=== PATIENT | female | born 1985 | race American Indian/Alaskan Native ===

== ENCOUNTER 2017-04-10 09:37 | Emergency (ER) | payer MEDICAID ==
[2017-04-10 10:00] VITALS: BP 132/87
[2017-04-10] MEDS ORDERED: NORCO 5/325 PO ONE (11:35)
[2017-04-10] MEDS ORDERED: DILAUDID IM ONE (11:47)
[2017-04-10] MEDS ORDERED: ZOFRAN ODT PO ONE (11:48)
[2017-04-10] MEDS ORDERED: XYLOCAINE TOPICAL 2% TP ONE (12:30)
--- NOTE | 2017-04-10 12:39 | Emergency Department Report ---
ED General Adult HPI - General Chief complaint: Pain General Stated complaint: HEMMORRIDS Source: patient Mode of arrival: Ambulatory Limitations: No Limitations - History of Present Illness Initial comments: 31 y/o F with no significant PMHX presents with rectal hemorrhoids after giving to her baby 5 days ago- vaginal with no complications. Pt states that the same thing happened when she delivered her first baby in 2012. Pt states that she has 10/10 in severity pain and has been trying preparation H and witch noel with no help. She states that her last BM was Friday and she states that she is afraid to go because of the pain. She denies any abdominal pain, fever, chills, CP, SOB, or n/v. She has been eating and urinating without issues. Pt states that she is not beast feeding and has someone to transport her home and help her with the baby. Currently on no other prescribed medications. NKDA. -: days(s) (5 days ago after of baby) Location: buttocks Severity scale (0 -10): 10 Quality: stabbing Consistency: constant Improves with: none Worsens with: other (touch) Treatments Prior to Arrival: other (preparation H and witch noel) - Related Data Home Medications Medication Instructions Recorded Confirmed Last Taken Valacyclovir HCl [valACYclovir] 1 tab PO DAILY 04/04/17 04/04/17 03/28/17 09:00 1 Previous Rx's Medication Instructions Recorded Last Taken Type Docusate Sodium [Colace] 100 mg PO BID PRN #10 capsule 04/10/17 Unknown Rx Hydrocortisone [Anusol-Hc] 30 gm RC BID #1 cream..g. 04/10/17 Unknown Rx oxyCODONE /ACETAMINOPHEN [Percocet 1 tab PO Q6HR PRN #10 tablet 04/10/17 Unknown Rx 5/325] Allergies Allergy/AdvReac Type Severity Reaction Status Date / Time No Known Allergies Allergy Verified 04/04/17 15:36 ED Review of Systems ROS: Stated complaint: HEMMORRIDS Other details as noted in HPI Constitutional: denies: chills, fever Eyes: denies: eye pain, eye discharge, vision change ENT: denies: ear pain, throat pain Respiratory: denies: cough, shortness of breath, wheezing Cardiovascular: denies: chest pain, palpitations Genitourinary: denies: urgency, dysuria, discharge Skin: other (hemorrhoids- 4 rectal) Neurological: denies: headache, weakness, paresthesias Psychiatric: denies: anxiety, depression Hematological/Lymphatic: denies: easy bleeding, easy bruising ED Past Medical Hx - Past Medical History Previous Medical History?: Yes Hx Hypertension: No Hx Congestive Heart Failure: No Hx Diabetes: No Hx Deep Vein Thrombosis: No Hx Renal Disease: No Hx Sickle Cell Disease: No Hx Seizures: No Hx Asthma: No Hx COPD: No Hx HIV: No Additional medical history: Vaginal delivery - Surgical History Past Surgical History?: No - Social History Smoking Status: Former Smoker Substance Use Type: Alcohol, Non Opiate Pain - Medications Home Medications: Home Medications Medication Instructions Recorded Confirmed Last Taken Type Valacyclovir HCl [valACYclovir] 1 tab PO DAILY 04/04/17 04/04/17 03/28/17 09:00 History 1 Docusate Sodium [Colace] 100 mg PO BID PRN #10 capsule 04/10/17 Unknown Rx Hydrocortisone [Anusol-Hc] 30 gm RC BID #1 cream..g. 04/10/17 Unknown Rx oxyCODONE /ACETAMINOPHEN [Percocet 1 tab PO Q6HR PRN #10 tablet 04/10/17 Unknown Rx 5/325] ED Physical Exam - General Limitations: No Limitations General appearance: alert, in no apparent distress - Head Head exam: Present: atraumatic, normocephalic - Eye Eye exam: Present: normal appearance - Respiratory Respiratory exam: Present: normal lung sounds bilaterally. Absent: respiratory distress - Cardiovascular Cardiovascular Exam: Present: regular rate, normal rhythm. Absent: systolic murmur, diastolic murmur, rubs, gallop - GI/Abdominal GI/Abdominal exam: Present: soft, normal bowel sounds - Rectal Rectal exam: Present: normal rectal tone, hemorrhoids, tenderness, other (there is blood noted (secondary to the recent vaginal ) with 4 external hemorroids noted without evidence of thrombosis and appeared reducible in nature ) - Neurological Exam Neurological exam: Present: alert, oriented X3 - Psychiatric Psychiatric exam: Present: normal affect, normal mood ED Course Vital Signs 04/10/17 09:56 Temperature 97.9 F Pulse Rate 70 Respiratory 16 Rate Blood Pressure 132/87 O2 Sat by Pulse 98 Oximetry ED Medical Decision Making - Medical Decision Making Case was discussed with Dr. Dominguez who also examined the patient. Pt was in significant pain on exam. pt was gien 0.5 mg of Dilaudid and Zofran 4 mg for the pain. Lidiociane RC was applied in the ED to the area. Patient states that this helped significantly with the pain. She was discharged with a laxative, anusol, and pain mediations. Pt was given referrals to [facility] , PCP, and obgyn. She was discharged in stable condition, alert and oriented, and in no resp distress. Critical care attestation.: If time is entered above; I have spent that time in minutes in the direct care of this critically ill patient, excluding procedure time. ED Disposition Clinical Impression: Acute hemorrhoid Disposition: DC-01 TO HOME OR SELFCARE Is pt being admited?: No Does the pt Need Aspirin: No Condition: Stable Instructions: Laxative, Stool Softeners (By mouth), Hydrocortisone (Rectal), Hemorrhoids (ED) Additional Instructions: Please follow up with your OBGYN within 2 days. I have given you a referral to [facility] please see them within this week. Please do sitz baths at home to help with your symptoms. Please be advised that the pain medication can make you drowsy do not take when driving or operating heavy machinery. Please return to the ER immediately if your presenting symptoms increase or worsen. Prescriptions: Docusate Sodium [Colace] 100 mg PO BID PRN #10 capsule PRN Reason: constipation Hydrocortisone [Anusol-Hc] 30 gm RC BID #1 cream..g. oxyCODONE /ACETAMINOPHEN [Percocet 5/325] 1 tab PO Q6HR PRN #10 tablet PRN Reason: Pain Referrals: [facility] [Outside] - 3-5 Days [facility] [Outside] - 3-5 Days EFRAIN WALLS MD [Staff Physician] - 3-5 Days CARIDAD ZHU MD [Staff Physician] - 3-5 Days PRIMARY MD GIOVANNA [Primary Care Provider] - 3-5 Days BARNEY KELLER MD [Staff Physician] - 3-5 Days Forms: Work/School Release Form(ED)
== END 2017-04-10 12:58 | disposition home or self-care (01) ==
LOC: ED 09:37
DX: K64.9 Unspecified hemorrhoids (principal)
CPT/HCPCS: 96372; 99283; J1170; Q0162

== ENCOUNTER 2017-04-19 20:20 | Emergency (ER) | payer MEDICAID ==
[2017-04-19 20:55] VITALS: BP 148/70
== END 2017-04-20 05:20 | disposition left against medical advice (07) ==
LOC: ED 20:20
DX: K64.9 Unspecified hemorrhoids (principal); Z53.21 Procedure and treatment not carried out due to patient leaving prior to being seen by health care provider

== ENCOUNTER 2020-09-22 10:07 | Emergency (ER) | payer MEDICAID | END 2020-09-22 13:09 | disposition left against medical advice (07) | LOC: ED 10:07 | DX: O26.891 Other specified pregnancy related conditions, first trimester (principal); R10.2 Pelvic and perineal pain; Z3A.10 10 weeks gestation of pregnancy ==

== ENCOUNTER 2021-03-21 19:47 | Outpatient (CLI) | payer MEDICAID ==
[2021-03-21] MEDS ORDERED: BETAMET ACET/BETAMET NA PH 6 MG/ML INJ 5 ML MDV IM ONE (22:49)
[2021-03-22 00:08] VITALS: BP 136/72
== END 2021-03-22 00:15 | disposition home or self-care (01) ==
LOC: TRG 19:47 → LD 19:49 → TRG 03-22 00:15
PROVIDERS: ATTEND Obstetrics & Gynecology
DX: Z34.93 Encounter for supervision of normal pregnancy, unspecified, third trimester (principal); Z3A.36 36 weeks gestation of pregnancy
CPT/HCPCS: J0702

== ENCOUNTER 2021-03-22 22:40 | Outpatient (CLI) | payer MEDICAID ==
[2021-03-22] MEDS ORDERED: BETAMET ACET/BETAMET NA PH 6 MG/ML INJ 5 ML MDV IM ONE (23:16)
[2021-03-22 23:23] VITALS: BP 108/61
== END 2021-03-22 23:27 | disposition home or self-care (01) ==
LOC: TRG 22:40 → APU 22:41 → TRG 23:27
PROVIDERS: ATTEND Obstetrics & Gynecology
DX: O09.893 Supervision of other high risk pregnancies, third trimester (principal); Z3A.36 36 weeks gestation of pregnancy
CPT/HCPCS: 59025; 96372; J0702

== ENCOUNTER 2021-04-13 08:40 | Inpatient (IN) | payer MEDICAID ==
[2021-04-13 12:03] LABS: Basophils % (Auto) 0.1 % (0.0-1.8); Eosinophils # (Auto) 0.1 K/mm3 (0.0-0.4); Hematocrit 34.6 % (30.3-42.9); Hemoglobin 11.1 gm/dl (10.1-14.3); Lymphocytes # (Auto) 1.1 K/mm3 (1.2-5.4); Lymphocytes % (Auto) 20.8 % (13.4-35.0); Mean Corpuscular HGB Conc 32 % (30-34); Mean Corpuscular Volume 78 fl (79-97); Monocytes # (Auto) 0.2 K/mm3 (0.0-0.8); Monocytes % (Auto) 4.4 % (0.0-7.3); Platelet Count 163 K/mm3 (140-440); Red Blood Count 4.42 M/mm3 (3.65-5.03); Red Cell Distribution Width 18.3 % (13.2-15.2)
--- NOTE | 2021-04-13 13:04 | History and Physical Report ---
History of Present Illness Date of examination: 04/13/21 Date of admission: 04/13/21 08:40 Chief complaint: scheduled induction for morbid obesity, grand multiparous in latent labor History of present illness: [id number] at 39.6wks by LMP c/w U/S here for augmentation of labor for morbid obesity; care at [facility]. Pt admits to movement, denies LOF or VB and admits to feeling ctx. Pt denies headache. Pt desires permanent sterilization. labs with O positive, antibody screen negative, rubella immune, RPR, HIV and HepBsAg all neg. 1hrgtt wnl; GBS negative. 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; Thrombocytopenia at 143,000) Past Surgical History: no surgical history Social history: no significant social history - Obstetrical History Expected Date of Delivery: 04/14/21 Actual Gestation: 39 Week(s) 6 Day(s) : 7 Para: 6 Hx # Term Pregnancies: 5 Number of Pregnancies: 1 Number of Living Children: 6 Medications and Allergies Allergies Allergy/AdvReac Type Severity Reaction Status Date / Time No Known Allergies Allergy Verified 04/04/17 15:36 Home Medications Medication Instructions Recorded Confirmed Last Taken Type Valacyclovir HCl [valACYclovir] 1 tab PO DAILY 04/04/17 04/13/21 04/12/21 History Cholecalciferol (Vitamin D3) 50 mcg PO DAILY 04/13/21 04/13/21 04/12/21 History [Vitamin D3] Ferrous Sulfate [Ferrous Sulfate 324 mg PO DAILY 04/13/21 04/13/21 04/12/21 History 324 MG] Vit-Fe Fumar-FA [ 1 tab PO DAILY 04/13/21 04/13/21 04/12/21 History Vitamin] Review of Systems All systems: negative (none) - Vital Signs Vital signs: Vital Signs Pulse Pulse Ox 59 L 94 04/13/21 09:43 04/13/21 09:43 Temp Pulse Resp BP Pulse Ox 98.8 F 94 H 16 119/78 99 04/13/21 10:07 04/13/21 10:16 04/13/21 10:07 04/13/21 09:48 04/13/21 10:16 - Physical Exam Breasts: Positive: deferred Cardiovascular: Regular rate Lungs: Positive: Normal air movement Abdomen: Positive: soft Genitourinary (Female): Positive: normal external genitalia Vulva: both: normal (no herpetic lesions) Vagina: Positive: normal moisture Uterus: Positive: enlarged (non-tender, ravid) - Obstetrical FHR: category 1 Uterine Contraction Monitor Mode: External Cervical Dilatation: 3 (per admit nurse) Cervical Effacement Percentage: 50 station: -2 Uterine Contraction Pattern: Irregular Results Result Diagrams: 04/13/21 10:00 Abnormal lab results 04/13/21 Range/Units 10:00 MCV 78 L (79-97) fl MCH 25 L (28-32) pg RDW 18.3 H (13.2-15.2) % Lymph # (Auto) 1.1 L (1.2-5.4) K/mm3 Seg Neutrophils % 73.7 H (40.0-70.0) % All other labs normal. Assessment and Plan Grand multiparous in latent labor, morbid obesity, GBS negative 1. Admit to labor and delivery 2. Augment with pitocin 3. May have IV pain med or epidural when desired 4. Plan of care discussed and consents obtained. Expect
[2021-04-13] MEDS ORDERED: METHYLERGONOVINE MALEATE 0.2 MG/ML VIAL IM PRN (13:28)
[2021-04-13] MEDS ORDERED: OXYTOCIN 10 UNIT/1 ML INJ IM PRN (13:28)
[2021-04-13] MEDS ORDERED: LIDOCAINE (2%) 20 MG/1 ML VIAL 20 ML MDV INFILTRATI NR (13:28)
[2021-04-13] MEDS ORDERED: LOPERAMIDE 2 MG CAP PO PRN (13:28)
[2021-04-13] MEDS ORDERED: CARBOPROST TROMETHAMINE 250 MCG/1 ML INJ IM PRN (13:28)
[2021-04-13] MEDS ORDERED: miSOPROStol 200 MCG TAB PR PRN (13:28)
[2021-04-13] MEDS ORDERED: TERBUTALINE 1 MG/1 ML INJ SUB-Q PRN (13:28)
[2021-04-13] MEDS ORDERED: ONDANSETRON 4 MG/2 ML INJ IV PRN (14:00)
[2021-04-13] MEDS ORDERED: NalbUPHINE 10 MG/1 ML INJ IV PRN (14:00)
[2021-04-13] MEDS ORDERED: fentaNYL 100 MCG/2 ML INJ IV PRN (14:00)
[2021-04-13] MEDS ORDERED: ACETAMINOPHEN 325 MG TAB PO PRN (14:00)
[2021-04-13] MEDS ORDERED: PROMETHAZINE 25 MG TAB PO PRN (14:00)
[2021-04-13] MEDS ORDERED: ePHEDrine SULFATE 50 MG/1 ML INJ IV PRN (14:00)
[2021-04-13] MEDS ORDERED: OXYTOCIN DRIP 30 UNITS/500 ML BAG IV SCH ×2 (14:00)
[2021-04-13] MEDS: LACTATED RINGERS 1,000 ML IV SCH (14:13)
[2021-04-13] MEDS ORDERED: MINERAL OIL 30 ML ORAL LIQD PO PRN (22:00)
--- NOTE | 2021-04-13 23:50 | Event Note ---
Date: 04/13/21 pt evaluated and FHR not tracing well with multiple loss of contact. Plan of care of discussed for AROM, IUPC and FSE and agreed. Pelvic 5/50/-2 and with fundal pressure during a ctx, AROM done with meconium stained fluid, IUPC placed without difficulty and FSE also placed. Pt desires epidural and nurse notified to start bolus. Anticipate vaginal delivery.
[2021-04-14] MEDS: LACTATED RINGERS 1,000 ML IV SCH ×2 (00:17→03:19)
[2021-04-14] MEDS ORDERED: NALOXONE 2 MG/2 ML INJ IV PRN (00:32)
[2021-04-14] MEDS ORDERED: NalbUPHINE 10 MG/1 ML INJ IV PRN (00:32)
[2021-04-14] MEDS ORDERED: diphenhydrAMINE 50 MG/ML VIAL IV PRN (00:32)
[2021-04-14] MEDS ORDERED: LACTATED RINGERS 250 ML IV SOLN IV ONE (00:32)
[2021-04-14] MEDS ORDERED: ePHEDrine SULFATE 50 MG/1 ML INJ IV PRN (00:32)
[2021-04-14] MEDS ORDERED: ONDANSETRON 4 MG/2 ML INJ IV PRN ×2 (00:32→04:33)
[2021-04-14] MEDS ORDERED: fentaNYL-BUPIV 2 MCG/ML-0.125% 200 MCG/100 ML BAG EPIDURAL SCH (01:00)
--- NOTE | 2021-04-14 01:11 | Anesthesia Consultation ---
Anesthesia Consult and Med Hx Date of service: 04/14/21 - Airway Anesthetic Teeth Evaluation: Good ROM Head & Neck: Adequate Mental/Hyoid Distance: Adequate Mallampati Class: Class II Intubation Access Assessment: Probably Good - Pulmonary Exam CTA: Yes - Cardiac Exam Cardiac Exam: RRR - Pre-Operative Health Status ASA Pre-Surgery Classification: ASA2 Proposed Anesthetic Plan: Epidural - Pulmonary Hx Smoking: No Hx Asthma: No COPD: No Hx Pneumonia: No Hx Sleep Apnea: No - Cardiovascular System Hx Hypertension: No Hx Heart Attack/AMI: No Hx Angina: No - Central Nervous System Hx Seizures: No Hx Psychiatric Problems: Yes (Anxiety) - Gastrointestinal Hx Gastroesophageal Reflux Disease: No - Endocrine Hx Renal Disease: No Hx End Stage Renal Disease: No Hx Liver Disease: No Hx Insulin Dependent Diabetes: No Hx Non-Insulin Dependent Diabetes: No Hx Hypothyroidism: No Hx Hyperthyroidism: No - Hematic Hx Anemia: Yes Hx Sickle Cell Disease: No - Other Systems Hx Alcohol Use: No
--- NOTE | 2021-04-14 01:12 | Progress Note ---
Labor Epidural - Labor Epidural Start Time: 00:44 Stop Time: 01:05 Performed by:: CARLA FITZPATRICK Procedure: Patient is requesting epidural for labor and pain. H&P, labs were reviewed. Patient IDed, H&P reviewed, all questions and concerns were answered, and consent was signed. Timeout was performed at bedside. Patient in sitting position. Sterile prep and drape was performed. 3ml of 1% lidocaine skin wheal at L[3]- L [4]. 17-gauge Tuohy epidural needle was advanced without success. 3ml of 1% lidocaine skin wheal at L[2]- L [3]. 17-gauge Tuohy epidural needle was advanced to loss of resistance with air technique 7cm. Negative CSF negative blood. Epidural catheter advanced to [12] centimeters. [negative] Aspiration [negative] test dose. Sterile dressing applied. Patient tolerated procedure.
--- NOTE | 2021-04-14 02:28 | Procedure Note ---
OB Delivery Note - Delivery Date of Delivery: 04/14/21 Surgeon: ALFREDO HALL Estimated blood loss: 100cc - Vaginal Delivery presentation: vertex Delivery position: OA Intrapartum events: other(please specify) (meconium stained fluid with particulate matter) Delivery induction: none Delivery augmentation: rupture of membranes, pitocin Delivery monitor: external FHT, external uterine, internal FHT, internal uterine Route of delivery: Delivery placenta: spontaneous Delivery cord: 3 umbilical vessels Episiotomy: none Delivery laceration: none Anesthesia: epidural Delivery comments: SAVD of viable female uncomplicated. Placenta delivered complete and no lacerations. Bimanual done and fundus firm with pitocin. Cytoctec given due grand multiparous. Pt already having loose stool with delivery and small hemorrhoids. Mom and baby stable. - Infant A at 1 minute: 8 at 5 minutes: 9 Gender: Female (wt 2550g; meconium stained fluid with particulate matter)
[2021-04-14] MEDS ORDERED: HYDROCORTISONE 2.5% RECT CREAM 28.35 GM PR PRN (02:32)
[2021-04-14] MEDS ORDERED: LANOLIN/ZINC/DIMETHICONE (LANSINOH) 7 GM TP PRN (04:33)
[2021-04-14] MEDS ORDERED: diphenhydrAMINE 25 MG CAP PO PRN (04:33)
[2021-04-14] MEDS ORDERED: MAGNESIUM HYDROXIDE (MOM) ORAL LIQD UDC PO PRN (04:33)
[2021-04-14] MEDS ORDERED: BENZOCAINE/MENTHOL 20/0.5% TOP SPRAY 56 GM TP PRN (04:33)
[2021-04-14] MEDS ORDERED: PROMETHAZINE 25 MG TAB PO PRN (04:33)
[2021-04-14] MEDS ORDERED: PROMETHAZINE 25 MG RECT SUPP PR PRN (04:33)
[2021-04-14] MEDS ORDERED: WITCH HAZEL/ GLYCERIN PAD TP PRN (04:33)
[2021-04-14] MEDS: IBUPROFEN 600 MG TAB PO SCH ×3 (04:45→15:45)
[2021-04-14] MEDS: oxyCODONE /ACETAMINOPHEN 5-325MG TAB PO PRN ×3 (05:42→18:21)
[2021-04-14] MEDS: PRENATAL VIT27-FE FUMARATE-FOLIC ACID VIT TAB PO SCH (09:12)
--- NOTE | 2021-04-14 13:27 | Post Anesthesia Evaluation ---
- Post Anesthesia Evaluation Patient Participated: Yes Airway Patent: Yes Stable Respiratory Function: Yes Nausea/Vomiting: No Temp > 96.8F: Yes Pain Manageable: Yes Adequeate Hydration: Yes Anesthesia Complications: No Block Receding Appropriately: Yes Patient on Ventilator: No
[2021-04-14 16:03] LABS: Hematocrit 33.5 % (30.3-42.9); Hemoglobin 10.7 gm/dl (10.1-14.3)
[2021-04-15] MEDS: IBUPROFEN 600 MG TAB PO SCH ×2 (00:12→05:32)
--- NOTE | 2021-04-15 01:43 | Progress Note ---
Assessment and Plan PPD#1 doing well 1. Routine care and normal hgb post delivery seen 2. May discharge home later if baby discharged or in the morning All questions encouraged and answered Subjective Date of service: 04/15/21 Principal diagnosis: PPD#1 Interval history: Pt has no complaints. pt is bottle feeding. Pt is voiding without difficulty and denies pelvic pain. Objective - Constitutional Vitals: Vital Signs - 12hr 04/14/21 04/14/21 04/14/21 15:45 16:35 18:21 Temperature 98.2 F Pulse Rate 51 L Respiratory 16 20 16 Rate Blood Pressure 109/63 [Left] O2 Sat by Pulse Oximetry [ Bilateral Throughout] 04/14/21 04/15/21 20:15 00:12 Temperature Pulse Rate Respiratory 18 Rate Blood Pressure [Left] O2 Sat by Pulse 100 Oximetry [ Bilateral Throughout] General appearance: Present: no acute distress - Respiratory Respiratory effort: normal - Breasts Breasts: normal - Cardiovascular Rhythm: regular Extremities: No edema - Gastrointestinal General gastrointestinal: Present: soft, non-tender - Genitourinary Female genitourinary: other (Fundus, Firm 2cm below umbilicus) - Neurologic Neurologic: moves all extremities - Psychiatric Psychiatric: appropriate mood/affect - Labs CBC & Chem 7: 04/14/21 15:42 Medications & Allergies - Medications Allergies/Adverse Reactions: Allergies No Known Allergies Allergy (Verified 04/04/17 15:36) Home Medications: Home Medications Medication Instructions Recorded Confirmed Last Taken Type Valacyclovir HCl [valACYclovir] 1 tab PO DAILY 04/04/17 04/13/21 04/12/21 Hi story Cholecalciferol (Vitamin D3) 50 mcg PO DAILY 04/13/21 04/13/21 04/12/21 History [Vitamin D3] Ferrous Sulfate [Ferrous Sulfate 324 mg PO DAILY 04/13/21 04/13/21 04/12/21 History 324 MG] Vit-Fe Fumar-FA [ 1 tab PO DAILY 04/13/21 04/13/21 04/12/21 History Vitamin] Active Medications: Generic Name Dose Route Start Last Admin Trade Name Freq PRN Reason Stop Dose Admin Acetaminophen 650 mg 04/13/21 14:00 Acetaminophen 325 Mg Tab PO Q4H PRN Pain, Mild (1-3) Benzocaine/Menthol 1 spray 04/14/21 04:33 Benzocaine/Menthol 20/0.5% [place] 56 Gm TP PRN PRN Episiotomy Pain Bisacodyl 10 mg 04/14/21 04:33 Bisacodyl 10 Mg Rect Supp ND BID PRN Constipation Diphenhydramine HCl 12.5 mg 04/14/21 00:32 Diphenhydramine 50 Mg/Ml Vial IV Q2H PRN Itching Diphenhydramine HCl 25 mg 04/14/21 04:33 Diphenhydramine 25 Mg Cap PO Q6H PRN Itching Hydrocortisone Acetate 1 applic 04/14/21 02:32 Hydrocortisone 2.5% Rect Cream 28.35 Gm ND Q8H PRN Hemorrhoids Oxytocin/Sodium Chloride 30 units in 500 mls @ 2 mls/hr 04/13/21 14:00 04/14/21 00:16 Pitocin/Ns 30 Unit/500ml IV 8 mls/hr TITR RACHEL 8 mls/hr Titration Protocol Lactated Ringer's 1,000 mls @ 125 mls/hr 04/13/21 14:00 04/14/21 03:19 Lactated Ringers IV 125 mls/hr DIRECT RACHEL Administration Ibuprofen 600 mg 04/14/21 04:33 04/15/21 00:12 Ibuprofen 600 Mg Tab PO 600 mg Q6HR RACHEL Administration Magnesium Hydroxide 30 ml 04/14/21 04:33 Magnesium Hydroxide (Mom) Oral Liqd Udc PO HS PRN Constipation Mineral Oil 30 ml 04/13/21 22:00 Mineral Oil 30 Ml Oral Liqd PO QHS PRN Constipation Multi-Ingredient Ointment 1 applic 04/14/21 04:33 Lanolin/Zinc/Dimethicone (Lansinoh) 7 Gm TP PRN PRN Sore Nipples Multivitamins/Iron/Calcium 1 each 04/14/21 10:00 04/14/21 09:12 [id number] Fumarate-Folic Acid Vit Tab PO 1 each QDAY RACHEL Administration Ondansetron HCl 4 mg 04/14/21 04:33 Ondansetron 4 Mg/2 Ml Inj IV Q8H PRN Nausea And Vomiting Oxycodone/Acetaminophen 1 tab 04/14/21 04:33 04/14/21 18:21 Oxycodone /Acetaminophen 5-325mg Tab PO 1 tab Q6H PRN Administration Pain, Moderate (4-6) Oxytocin 10 unit 04/13/21 13:28 Oxytocin 10 Unit/1 Ml Inj IM ONCE PRN Uterine Bleeding Promethazine HCl 25 mg 04/14/21 04:33 Promethazine 25 Mg Rect Supp ND Q6H PRN Nausea And Vomiting Promethazine HCl 25 mg 04/14/21 04:33 Promethazine 25 Mg Tab PO Q6H PRN Nausea And Vomiting Sodium Chloride 10 ml 04/14/21 04:33 Sodium Chloride 0.9% 10 Ml Flush Syringe IV PRN PRN LINE FLUSH Witch Yesy/Glycerin 1 each 04/14/21 04:33 Witch Yesy/ Glycerin Pad TP PRN PRN Hemorrhoid/cleansing/soothing
[2021-04-15] MEDS: oxyCODONE /ACETAMINOPHEN 5-325MG TAB PO PRN ×2 (08:30→17:58)
[2021-04-15] MEDS: PRENATAL VIT27-FE FUMARATE-FOLIC ACID VIT TAB PO SCH (11:08)
--- NOTE | 2021-04-15 16:19 | Discharge Summary ---
Providers - Providers Date of Admission: 04/13/21 08:40 Date of discharge: 04/15/21 Attending physician: ALFREDO HALL Primary care physician: ALFREDO HALL Hospitalization Reason for admission: other (latent labor/augmentation of labor) Delivery: Episiotomy: none Laceration: none Other procedures: none complications: none Discharge diagnosis: IUP at term delivered baby: female Pertinent studies: Labs Hospital course: Stable hospital course Condition at discharge: Good Disposition: 01 HOME / SELF CARE / HOMELESS Plan - Provider Discharge Summary Activity: routine, no sex for 6 weeks, no heavy lifting 4 weeks, no strenuous exercise Diet: routine Instructions: routine Additional instructions: Continue taking your vitamins and iron supplements at home. Call your doctor immediately for: * Fever > 100.5 * Heavy vaginal bleeding ( >1 pad per hour) * Severe persistent headache * Shortness of breath * Reddened, hot, painful area to leg or breast - Follow up plan Follow up: ALFREDO HALL MD [Primary Care Provider] - 14 Days
[2021-04-15 16:47] VITALS: BP 104/64
== END 2021-04-15 19:50 | disposition home or self-care (01) | DRG 774 ==
LOC: LD 08:40 → OB 04-14 04:30
PROVIDERS: ADMIT Obstetrics & Gynecology; ATTEND Obstetrics & Gynecology
PROC: 10E0XZZ Delivery of Products of Conception, External Approach (ICD-10-PCS; principal; 2021-04-14)
PROC: 10907ZC Drainage of Amniotic Fluid, Therapeutic from Products of Conception, Via Natural or Artificial Opening (ICD-10-PCS; 2021-04-14)
PROC: 10H07YZ Insertion of Other Device into Products of Conception, Via Natural or Artificial Opening (ICD-10-PCS; 2021-04-14)
PROC: 3E0R3BZ Introduction of Anesthetic Agent into Spinal Canal, Percutaneous Approach (ICD-10-PCS; 2021-04-14)
PROC: 00HU33Z Insertion of Infusion Device into Spinal Canal, Percutaneous Approach (ICD-10-PCS; 2021-04-14)
DX: O77.0 Labor and delivery complicated by meconium in amniotic fluid (principal); O98.32 Other infections with a predominantly sexual mode of transmission complicating childbirth; Z37.0 Single live birth; Z3A.39 39 weeks gestation of pregnancy; O99.214 Obesity complicating childbirth; E66.01 Morbid (severe) obesity due to excess calories; A60.00 Herpesviral infection of urogenital system, unspecified
CPT/HCPCS: 36415; 85014; 85018; 85025; 86592; 86850; 86900; 86901; 96360; G0378; J3490; J2590; J7120; U0003